=== PATIENT | male | born 1980 | race Caucasian/White ===

== ENCOUNTER 2019-03-03 11:32 | Emergency (ER) | payer OTHER ==
[~2019-03-03] VITALS: Ht 177.8 cm; Wt 90.7 kg
[2019-03-03 11:35] VITALS: BP 137/76
[2019-03-03] MEDS ORDERED: HYDR30CR61 TP (12:31)
--- NOTE | 2019-03-03 12:31 | PHYS DOC ---
Adult General Chief Complaint Chief Complaint: HEMORRHOIDS HPI HPI Patient is a 39-year-old male who presents with complaint of painful, bleeding hemorrhoid that has been present for the last several days. Patient states he has been using Preparation H without improvement. He rates pain as moderate. He states that he has been training for triathlon which has been worsening his symptoms. Review of Systems Review of Systems Constitutional: Denies fever or chills [] Respiratory: Denies cough or shortness of breath [] Cardiovascular: No additional information not addressed in HPI [] GI: Denies abdominal pain, nausea, vomiting or diarrhea [] : Denies dysuria or hematuria [] Allergies Allergies Allergies Coded Allergies Type Severity Reaction Last Updated Verified Sulfa (Sulfonamide Antibiotics) Allergy Unknown 03/03/19 Yes Physical Exam Physical Exam Constitutional: Well developed, well nourished, no acute distress, non-toxic appearance. [] Cardiovascular:Heart rate regular rhythm, no murmur [] Lungs & Thorax: Bilateral breath sounds clear to auscultation [] Abdomen: Bowel sounds normal, soft, no tenderness. Rectal exam demonstrates small thrombosed hemorrhoid but has small amount of bleeding present. [] Skin: Warm, dry, no erythema, no rash. [] EKG EKG [] Radiology/Procedures Radiology/Procedures [] Course & Med Decision Making Course & Med Decision Making Pertinent Labs and Imaging studies reviewed. (See chart for details) [] Dragon Disclaimer Dragon Disclaimer This electronic medical record was generated, in whole or in part, using a voice recognition dictation system. Departure Departure: Impression: Primary Impression: Thrombosed external hemorrhoid Disposition: 01 HOME, SELF-CARE Condition: STABLE Referrals: VILMA NG (PCP) Patient Instructions: Hemorrhoids Scripts Hydrocortisone (ANUSOL-HC) 30 Gm Cream..g. 1 SHU TP BID for hemorrhoid, #30 GM 1 Refill Prov: JASON MENENDEZ Jr. DO 03/03/19 JASON MENENDEZ Jr. DO March 03, 2019 12:31
== END 2019-03-03 12:40 | disposition home or self-care (01) ==
LOC: ER 11:32
DX: K64.5 Perianal venous thrombosis (principal); Z88.2 Allergy status to sulfonamides
CPT/HCPCS: 99282; 99283

== ENCOUNTER 2020-11-13 16:49 | Emergency (ER) | payer OTHER ==
[~2020-11-13] VITALS: Ht 177.8 cm; Wt 199.4 kg
[~2020-11-13 16:49] MED LIST: HYDR30CR61 TP
--- NOTE | 2020-11-13 17:10 | PHYS DOC ---
Past History Past Medical History: Other Past Surgical History: No Surgical History Alcohol Use: Occasionally Drug Use: None General Adult EDM: Chief Complaint: syncope HPI: HPI: 40-year-old male presenting to the emergency department today with syncope x2 after having the covid vaccine. He received the vaccine on Monday and passed out on Monday afternoon and then Monday passed out once again. He has been feeling generalized fatigue. He currently is feeling much better but is not back to totally normal. He denies any focal neurologic deficits double vision. He feels weak and tired. Review of systems: He denies chest pain shortness of breath vomiting fevers chills. All other review of systems negative. ED course: 40-year-old male presents emergency department today with syncope and fatigue after the Covid vaccine on Monday. Vitals unremarkable. Patient is well-appearing with a normal neurologic exam. Head CT obtained and unremarkable. Blood work still pending at time of signout at 6 PM with plans to follow-up on labs and for final disposition. Allergies: Allergies: Allergies Coded Allergies Type Severity Reaction Last Updated Verified Sulfa (Sulfonamide Antibiotics) Allergy Unknown 03/03/19 Yes Physical Exam: PE: Constitutional: Well developed, well nourished, no acute distress, non-toxic appearance. [] HENT: Normocephalic, atraumatic, bilateral external ears normal, oropharynx moist, no oral exudates, nose normal. [] Eyes: PERRLA, EOMI, conjunctiva normal, no discharge. [] Neck: Normal range of motion, no tenderness, supple, no stridor. [] Cardiovascular:Heart rate regular rhythm, no murmur [] Lungs & Thorax: Bilateral breath sounds clear to auscultation [] Abdomen: Bowel sounds normal, soft, no tenderness, no masses, no pulsatile masses. [] Skin: Warm, dry, no erythema, no rash. [] Back: No tenderness, no CVA tenderness. [] Extremities: No tenderness, no cyanosis, no clubbing, ROM intact, no edema. [] Neurologic: Mental status: Awake oriented and alert x3 Cranial nerves: Extraocular movements intact, eyebrows kay bilaterally, smile symmetric, uvula elevation nl, shoulder shrug intact bilaterally, tongue protru jesus normal Clear speech. Sensation: equal and normal in all extremities Strength: 5/5 in upper and lower extremities bilaterally Psychologic: Affect normal, judgement normal, mood normal. [] EKG: EKG: [] Radiology/Procedures: Radiology/Procedures: [] Heart Score: Risk Factors: Risk Factors: DM, Current or recent (<one month) smoker, HTN, HLP, family history of CAD, obesity. Risk Scores: Score 0 - 3: 2.5% MACE over next 6 weeks - Discharge Home Score 4 - 6: 20.3% MACE over next 6 weeks - Admit for Clinical Observation Score 7 - 10: 72.7% MACE over next 6 weeks - Early Invasive Strategies Course & Med Decision Making: Course & Med Decision Making Pertinent Labs and Imaging studies reviewed. (See chart for details) [] Dragon Disclaimer: Dragon Disclaimer: This electronic medical record was generated, in whole or in part, using a voice recognition dictation system. Departure Departure: Impression: Primary Impression: Syncope Additional Impression: Adverse reaction to vaccine Referrals: VILMA NG (PCP) Patient Instructions: Syncope ALIA ALFREDO MD Nov 13, 2020 17:10
[2020-11-13] MEDS ORDERED: IV NORMAL SALINE 1,000ML 1,000 ML IV ONE (17:15)
--- NOTE | 2020-11-13 17:55 | RAD ---
CT HEAD/BRAIN WO History: Reason: syncope / Spl. Instructions: / History: Comparison: None. Technique: Noncontrast CT imaging was performed of the head. Exposure: One or more of the following individualized dose reduction techniques were utilized for thi s examination: 1. Automated exposure control 2. Adjustment of the mA and/or kV according to patient size 3. Use of iterative reconstruction technique. Findings: No intracranial hemorrhage. No mass effect. No hydrocephalus. Extra-axial spaces are unremarkable. Imaged orbits are unremarkable. Imaged paranasal sinuses and mastoid air cells are clear. No acute ca lvarial fracture. Impression: 1. No acute intracranial abnormality. Electronically signed by: Saji Colbert DO (11/13/2020 5:53 PM) [facility]
[2020-11-13 18:00] LABS: BASO % 1 % (0-3); EOS % 1 % (0-3); HEMATOCRIT 47.3 % (39.0-53.0); HEMOGLOBIN 15.9 g/dL (13.0-17.5); LYMPH # 1.5 x10^3/uL (1.0-4.8); LYMPH % 24 % (24-48); MEAN CORPUSCULAR HEMOGLOBIN 29 pg (25-35); MEAN CORPUSCULAR HGB CONC 34 g/dL (31-37); MEAN CORPUSCULAR VOLUME 87 fL (79-100); MONO # 0.5 x10^3/uL (0.0-1.1); MONO % 9 % (0-9); NEUT # 4.1 x10^3uL (1.8-7.7); NEUT % 67 % (31-73); PLATELET COUNT 283 x10^3/uL (140-400); RED BLOOD COUNT 5.43 x10^6/uL (4.30-5.70); RED CELL DISTRIBUTION WIDTH 13.6 % (11.5-14.5); WHITE BLOOD COUNT 6.2 x10^3/uL (4.0-11.0)
[2020-11-13 18:11] LABS: CALCIUM 9.3 mg/dL (8.5-10.1); CREATININE 1.1 mg/dL (0.7-1.3); GFR 74.9; POTASSIUM 3.6 mmol/L (3.5-5.1)
[2020-11-13 18:17] LABS: ALBUMIN 4.3 g/dL (3.4-5.0); ALBUMIN/GLOBULIN RATIO 1.2 (1.0-1.7); TOTAL BILIRUBIN 0.4 mg/dL (0.2-1.0); TOTAL PROTEIN 7.8 g/dL (6.4-8.2)
[2020-11-13 18:20] LABS: BILIRUBIN,URINE NEG (NEG); CLARITY,URINE CLEAR; COLOR,URINE YELLOW; GLUCOSE,URINE NEG (NEG)
[2020-11-13 18:21] LABS: BACTERIA,URINE 0 /HPF (0-FEW); NITRITE,URINE NEG (NEG); RBC,URINE OCC /HPF (0-2); SQUAMOUS EPITHELIAL CELL,UR OCC /LPF; UROBILINOGEN,URINE 0.2 mg/dL (0.2 mg/dL); WBC,URINE 0 /HPF (0-4)
--- NOTE | 2020-11-13 18:24 | EKG ---
[facility] ED [facility] [address] [place] [id number] Test Date: 2020-11-13 Test Time: 17:11:48 Pat Name: RUTH ANN POWERS Department: Room: Gender: M Ict Trainer: : 1980 Requested By: ALIA ALFREDO Order Number: [id number] Reading MD: Measurements Intervals [place] Rate: 75 P: 49 WA: 162 QRS: 24 QRSD: 92 T: 39 QT: 360 QTc: 404 Interpretive Statements SINUS RHYTHM NORMAL ECG RI6.02 No previous ECG available for comparison
[2020-11-13] MEDS ORDERED: IBUP400T18 PO (18:40)
[2020-11-13] MEDS ORDERED: ACET325C6 PO (18:40)
== END 2020-11-13 18:57 | disposition home or self-care (01) ==
LOC: ER 16:49
DX: T88.1XXA Other complications following immunization, not elsewhere classified, initial encounter (principal); R55 Syncope and collapse; R53.83 Other fatigue; R53.1 Weakness; Z88.2 Allergy status to sulfonamides
CPT/HCPCS: 36415; 70450; 80053; 81001; 83690; 84484; 85025; 93005; 96360; 99285; J7030